=== PATIENT | female | born 1955 | race Caucasian/White ===

== ENCOUNTER 2021-02-15 15:16 | Emergency (ER) | payer BC, SELFPAY ==
[2021-02-15 15:29] VITALS: BP 132/69; PULSE 102; RESP 16; TEMP 37.2; O2SAT 99
[2021-02-15 15:57] LABS: Basophils Percent Auto 0.1 % (0.2-1.2); Eosinophils Percent Auto 0.1 % (0-4.4); Hematocrit 35.9 % (37.0-47.0); Hemoglobin 11.6 g/dL (12.0-15.0); Immature Granulocyte Absolute 0.31 K/mm3 (0.00-0.031); Immature Granulocyte Percent A 1.4 % (0-0.5); Immature Platelet Fraction Pct 18.6 % (0.9-11.2); Lymphocytes Absolute Auto 1.27 K/mm3 (0.9-3.2); Lymphocytes Percent Auto 5.5 % (18.3-44.2); Mean Corpuscular HGB Conc 32.3 g/dl (32-36); Mean Corpuscular Hemoglobin 27.7 pg (26-34); Mean Corpuscular Volume 85.7 fl (80-100); Monocytes Absolute Auto 1.2 K/mm3 (0.1-0.6); Monocytes Percent Auto 5.4 % (2.6-8.5); Neutrophils Percent Auto 87.5 % (45.5-73.1); Platelet Count Result 33 k/mm3 (150-375); Red Blood Count 4.19 M/mm3 (4.2-5.4); Red Cell Distribution Width 14.1 % (11.5-14.5); White Blood Count 22.9 K/mm3 (4.5-10.0)
--- NOTE | 2021-02-15 17:47 | ED.GENADULT ---
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 Recent diagnosis and tumor excision on May 2020. Immunotherapy, complicated with ITP, history of epistaxis and gum bleeding 1 week ago, was hospitalized at [facility] and received 2 units of platelet. Patient was a scheduled to meet the oncology radiology today for radiotherapy, did not feel well and came to our emergency room instead. Patient denies any fever, chills, nausea, vomiting, headache, abdominal pain, back pain. Her main complaint at this time is fatigue and depression Related Data Allergies Allergy/AdvReac Type Severity Reaction Status Date / Time cat dander Allergy Unknown Verified 02/15/21 16:56 Review of Systems Review of Systems: Narrative: CONSTITUTIONAL: Denies fever, chills, or sweats. EYES: Denies visual changes, redness, or discharge. ENT: Denies rhinorrhea, congestion, sore throat, or otalgia. CARDIOVASCULAR: Denies chest pain, palpitations, or edema. RESPIRATORY: Denies cough or dyspnea. GASTROINTESTINAL: Denies abdominal pain, nausea, vomiting, or diarrhea. GENITOURINARY: Denies dysuria or hematuria. SKIN: Denies rash or itching. MUSCULOSKELETAL: Denies back pain, joint pain, or myalgia. NEUROLOGIC: Denies headache, numbness, or weakness. PSYCHIATRIC: Denies anxiety or depression. Exam Narrative: Exam Narrative: General appearance: Well-developed, well-nourished, looks depressed Skin: Normal color Head: Normocephalic, nontraumatic Eyes: Clear conjunctiva ENT: Oropharynx normal, ears normal, nose normal Neck: Supple, nontender Chest and respiratory: Airway patent, no respiratory distress, no accessory muscle use Heart: Regular rate/rhythm Abdomen: Soft, mild to moderate tenderness right lower quadrant ,, no organomegaly, quiet bowel sounds. Rectal exam showed a fungating mass, perianal, no active bleeding, diffusely tender Vascular: Normal peripheral pulses, normal capillary refill. Musculoskeletal: Normal range of motion, nontender back Neurologic: Alert and oriented ?3, DIABETES CLINICAL MANAGER is normal as tested, no gross motor deficit Course Course Emergency Course: Stable Reevaluation(s) Reevaluation #1: Currently patient feeling much better, does not feel weak and tired as earlier today and would like to go home. Currently denying any active bleeding or any significant pain interfere with her going back home. She is planning to call her oncologist tomorrow, and to go visit her oncologist radiologist for evaluation. Date: 02/15/21 Time: 22:36 Reevaluation #2: After getting COVID-19 test, [facility] telling us that there is no bed available at this time, will be available in the next 24 hours. Patient decided to go home because she is feeling much better and does not need to stay with us or even go to [facility]. She will call her oncologist tomorrow. Date: 02/15/21 Time: 22:39 Consultations Consultation #1: Dr. Quintana, oncologist at [facility], accepted patient transfer to [facility] after getting rapid Covid test. Date: 02/15/21 Time: 22:35 Vital Signs Vital signs: Vital Signs Temperature 37.2 C 02/15/21 15:29 Pulse Rate 102 H 02/15/21 15:29 Respiratory Rate 16 02/15/21 15:29 Blood Pressure 132/69 02/15/21 15:29 Pulse Oximetry 99 02/15/21 15:29 Temperature 37.2 C 02/15/21 15
[2021-02-15] MEDS: ONDANSETRON INJ 4 MG/2 ML VIAL IV PUSH (18:02)
[2021-02-15] MEDS: HYDROmorphone HCL INJ (*CRX) 1 MG/ML SYR 0.5 MG IV PUSH (18:02)
[2021-02-15] MEDS: SODIUM CHLORIDE 0.9% IV 1,000 ML 999 ML IV CONT (18:02)
[2021-02-15 18:56] VITALS: BP 131/65; PULSE 99; RESP 17; O2SAT 99
[2021-02-15 19:28] LABS: Alanine Aminotransferase 16 U/L (4-35); Alkaline Phosphatase 83 U/L (38-126); Anion Gap 6 mmol/L (8-16); Aspartate Amino Transferase 42 U/L (14-36); Bilirubin,Total 0.7 mg/dL (0.2-1.3); Blood Urea Nitrogen 17 mg/dL (7-17); Calcium 7.8 mg/dL (8.4-10.2); Carbon Dioxide 27 mmol/L (22-30); Chloride 99 mmol/L (98-107); Estimated CRCL calculation 92 ml/min; Estimated Glomerular Filt Rate > 60; Glucose 104 mg/dL (65-105); Potassium 3.5 mmol/L (3.4-5.0); Sodium 132 mmol/L (137-145)
[2021-02-15 19:36] LABS: INR 1.1; Prothrombin Time 14.4 Seconds (11.1-14.7)
[2021-02-15 19:38] VITALS: BP 124/60; PULSE 71; O2SAT 98
[2021-02-15 19:38] LABS: Partial Thromboplastin Time 26.8 SECONDS (22.3-36.8)
[2021-02-15 20:13] LABS: Add Urine Microscopic? YES; Appearance Urine Clear (Clear); Bacteria Urine Trace /hpf; Bilirubin Urine Negative (Negative); Blood Urine 1+ (Negative); Color Urine Yellow (Yellow); Glucose Urine UA Negative (Negative); Ketones Urine Negative (Negative); Leukocyte Esterase Ur Negative LEU/UL (Negative); Mucus Urine Rare /lpf; Nitrate Urine Negative (Negative); Protein Urine Negative (Negative); RBC Urine 0-2 /hpf (0-2); Squamous Epithelial Cell Urine Rare /hpf (Few); Urobilinogen Urine Negative mg/dL (<2.0); WBC Urine 0-3 /hpf
--- NOTE | 2021-02-15 21:01 | PC.NURSE ---
called [facility] transfer line advised covid poc was negative.
[2021-02-15 22:20] VITALS: BP 136/65; PULSE 77; O2SAT 98
== END 2021-02-15 23:02 | disposition home or self-care (01) ==
PROVIDERS: Emergency Medicine; Emergency Provider Emergency Medicine
DX: R53.1 Weakness (principal); F32.9 Major depressive disorder, single episode, unspecified; Z20.822 Contact with and (suspected) exposure to COVID-19; Z85.828 Personal history of other malignant neoplasm of skin
CPT/HCPCS: 36415; 80053; 81001; 85025; 85055; 85610; 85730; 86850; 86900; 86901; 87426; 96361; 96374; 96375; 99284; C9803; J1170; J2405; J7030

== ENCOUNTER 2021-05-07 17:04 | Emergency (ER) | payer MEDICARE, BC, SELFPAY ==
[2021-05-07 17:10] VITALS: BP 141/81; PULSE 104; RESP 16; TEMP 36.6; O2SAT 98
[2021-05-07 17:28] LABS: Hematocrit 28.5 % (37.0-47.0); Hemoglobin 9.1 g/dL (12.0-15.0); Mean Corpuscular HGB Conc 31.9 g/dl (32-36); Mean Corpuscular Volume 87.7 fl (80-100); Mean Platelet Volume 10.1 fl (7.4-10.4); Platelet Count Result 269 k/mm3 (150-375); Red Blood Count 3.25 M/mm3 (4.2-5.4); Red Cell Distribution Width 16.8 % (11.5-14.5); White Blood Count 9.1 K/mm3 (4.5-10.0)
[2021-05-07 17:38] LABS: Alanine Aminotransferase 13 U/L (4-35); Albumin Level 3.9 g/dL (3.5-5.1); Alkaline Phosphatase 113 U/L (38-126); Anion Gap 9 mmol/L (8-16); Aspartate Amino Transferase 24 U/L (14-36); Bilirubin,Total 0.6 mg/dL (0.2-1.3); Blood Urea Nitrogen 8 mg/dL (7-17); Calcium 9.3 mg/dL (8.4-10.2); Carbon Dioxide 30 mmol/L (22-30); Chloride 96 mmol/L (98-107); Estimated CRCL calculation 88 ml/min; Estimated Glomerular Filt Rate > 60; Glucose 124 mg/dL (65-110); Lipase 13 U/L (23-300); Potassium 3.2 mmol/L (3.4-5.0); Sodium 135 mmol/L (137-145)
[2021-05-07 17:49] LABS: Band Neutrophils Percent 13 % (0-6); Lymphocytes Absolute Manual 0.18 K/mm3 (1.1-4.5); Monocytes Absolute Manual 0.36 K/mm3 (0.1-0.90); Monocytes Percent Manual 4 % (3-9); Neutrophils Absolute Manual 8.55 K/mm3 (1.7-7.2); Neutrophils Percent Manual 81 % (46-73); Platelet Estimate Adequate (Adequate); Total Cells Counted 100
[2021-05-07 17:50] LABS: Anisocytosis 2+ (NORMAL); Hypochromasia 1+ (NORMAL)
[2021-05-07 20:23] LABS: Add Urine Microscopic? NO; Appearance Urine Clear (Clear); Bilirubin Urine Negative (Negative); Blood Urine Negative (Negative); Color Urine Yellow (Yellow); Glucose Urine UA Negative (Negative); Ketones Urine Negative (Negative); Leukocyte Esterase Ur Negative LEU/UL (Negative); Nitrate Urine Negative (Negative); Protein Urine Negative (Negative); Urobilinogen Urine Negative mg/dL (<2.0)
[2021-05-07 20:24] VITALS: BP 133/81; PULSE 97; RESP 18; O2SAT 99
--- NOTE | 2021-05-07 20:24 | PC.NURSE ---
Pt reports pain and states she takes PO morphine at 0900 and 2100 daily. Requests pain medication prior to fleets enema/soap suds enema. EDP Dr Silveira made aware, order placed to pharm.
[2021-05-07] MEDS: MORPHINE SULFATE ORAL CONC SOL (*CRX) 10 MG/0.5 ML SYRINGE PO (20:43)
--- NOTE | 2021-05-07 20:48 | ED.ABDPAIN ---
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 for pain Here because of rectal discomfort and not passing a stool that she can recall for several days She is supposed to take MiraLAX but does not always No fever, no vomiting, no urinary symptoms Related Data Home Medications Medication Instructions Recorded Confirmed eltrombopag [Promacta] 05/07/21 fluconazole 05/07/21 levothyroxine 05/07/21 morphine PO 05/07/21 oxycodone 05/07/21 Allergies Allergy/AdvReac Type Severity Reaction Status Date / Time cat dander Allergy Unknown Verified 05/07/21 17:41 Review of Systems Review of Systems: All systems reviewed & are unremarkable except as noted in HPI and below Constitutional: Constitutional: Reports no additional constitutional complaints, Denies chills, Reports fatigue, Denies fever(s), Denies headache(s) and Reports weakness ENT: Denies headache(s) Cardiovascular: Cardiovascular: Denies dyspnea Respiratory: Respiratory: Denies cough and Denies dyspnea Gastrointestinal: Gastrointestinal: Reports abdominal pain, Reports constipation, Denies diarrhea, Reports nausea and Denies vomiting Genitourinary: Genitourinary: Denies urinary frequency Musculoskeletal: Musculoskeletal: Reports myalgias, Denies deformity and Denies numbness Integumentary/Breasts: Skin/Breast: Denies wounds Neurologic: Denies headache(s), Denies focal weakness and Denies numbness Psychiatric: Psychiatric: Reports no additional psychiatric complaints Endocrine: Endocrine: Reports no additional endocrine complaints Hematologic/Lymphatic: Hematologic/Lymphatic: Reports no additional hematologic/lymphatic complaints Allergic/Immunologic: Allergic/Immunologic: Reports no additional allergic/immunologic complaints Exam Const: General: cooperative, alert and ill appearing Orientation/consciousness: patient oriented x3 (alert) HENMT: Head: normal to inspection, normocephalic and atraumatic Ears: external ears normal General nose exam: no epistaxis Eyes: Conjunctivae: conjunctivae normal EOM: EOMs intact bilaterally Neck: Neck: normal visual inspection, supple and no JVD Resp: Effort & Inspection: normal respiratory effort and not labored Auscultation: other (BS =) GI: GI Palp: Yes Soft to palpation, No Tenderness to palpation present (GI) and No Guarding due to palpation present (GI) Other: There is a large ulcerating mass in the right groin There is a similar ulcerating and a draining lesion in the right perianal region over the buttock There is a moderate sized firm impaction on digital rectal exam that was broken up somewhat digitally to the limit of the patient's tolerance Skin: General skin exam: no rashes or lesions noted Neuro: General: patient oriented x3 (alert) and moves all extremities Speech: normal speech Psych: Affect: normal affect Course Course Emergency Course: Did pass some stool after digital maceration and enema administration Vital Signs Vital signs: Vital Signs Temperature 36.6 C 05/07/21 17:10 Pulse Rate 104 H 05/07/21 17:10 Respiratory Rate 16 05/07/21 17:10 Blood Pressure 141/81 H 05/07/21 17:10 Pulse Oximetry 98 05/07/21 17:10 Temperature 36.6 C 05/07/21 17:10 Pulse Rate 97 05/07/21 20:24 Respiratory Rate 18 05/07/21 20:24 Blood Pressure 133/81 05/07/21 20:24 Pulse Oximetry 99 05/07/21 20:24 MDM - Abdominal Pain Lab Data Result diagrams: 05/07/21 17:16 05/07/21 17:16 Labs: Lab Results 05/07/21 05/07/21 05/07/21 Range/Units 17:16 17:16 20:16 WBC 9.1 (4.5-10.0) K/mm3 RBC 3.25 L (4.2-5.4)
[2021-05-07 22:09] VITALS: BP 138/87; PULSE 99; RESP 21; O2SAT 97
== END 2021-05-07 22:34 | disposition home or self-care (01) ==
PROVIDERS: Emergency Provider Emergency Medicine
DX: K56.41 Fecal impaction (principal); C43.51 Malignant melanoma of anal skin
CPT/HCPCS: 36415; 51701; 80053; 81003; 83690; 85025; 99283; A9270

== ENCOUNTER 2021-05-23 23:23 | Emergency (ER) | payer MEDICARE, SELFPAY ==
--- NOTE | ~2021-05-23 | CT_ITS ---
EXAMINATION: CT abdomen pelvis w con DATE: 05/24/2021 03:15 INDICATION: Low abdominal pain. Diarrhea. Nausea. TECHNIQUE: Computed tomography (CT) of the abdomen and pelvis was performed with 100 mL Omnipaque 350 intravenous contrast. Automated exposure control and iterative reconstruction technique were employe d. The dose-length product was 948.79 mGy-cm. COMPARISON: None. FINDINGS: The visualized portions of the lung bases are clear without pneumonia or pleural effusion. The heart size is normal. No pericardial effusion. There are 10 mm and 7 mm masses in left hepatic lo be. The spleen is normal. There are gallstones in the gallbladder, which is normal in size. The pancr eas and left adrenal gland are normal. There is a 2.0 cm mass in right adrenal gland measuring soft t issue attenuation. There are cysts in the kidneys measuring up to 1.4 cm on the right. There is diver ticulosis of the colon without evidence of diverticulitis. There is mild wall thickening of the recto sigmoid. There is liquid stool in the colon correlating with the symptom of diarrhea. The appendix is normal. In the right perineum, there is an 8.4 x 4.0 x 6.7 cm necrotic perianal mass that is ulcerat ed at the skin. In the right inguinal region, there is a 8.4 x 5.5 x 13.7 cm mass. There is severe elyse mbar spondylosis. There is mild chronic anterior wedging of multiple vertebral bodies. IMPRESSION: 1. 8.4 x 4.0 x 6.7 cm perianal mass, consistent with primary malignancy. 2. 8.4 x 5.5 x 13.7 cm right inguinal mass, consistent with michael metastatic disease. 3. 10 mm and 7 mm liver masses, which may be metastatic disease or cysts. 4. 2.0 cm right adrenal mass, which may be metastatic disease or an adenoma. 5. Mild wall thickening of the rectosigmoid, consistent with colitis. Reviewed, dictated and finalized at location A. IMPRESSION: 1. 8.4 x 4.0 x 6.7 cm perianal mass, consistent with primary malignancy. 2. 8.4 x 5.5 x 13.7 cm right inguinal mass, consistent with michael metastatic di sease. 3. 10 mm and 7 mm liver masses, which may be metastatic disease or cysts. 4. 2.0 cm right adrenal mass, which may be metastatic disease or an adenoma. 5. Mild wall thickening of the rectosigmoid, consistent with colitis.
[2021-05-23 23:27] VITALS: BP 166/74; PULSE 68; RESP 18; TEMP 36.5; O2SAT 100
[2021-05-24] VITALS (11 sets, daily range): BP systolic 130–181; BP diastolic 69–84; PULSE 60–77; RESP 12–16; O2SAT 99–100
[2021-05-24 00:14] LABS: Hematocrit 28.6 % (37.0-47.0); Hemoglobin 9.3 g/dL (12.0-15.0); Immature Granulocyte Absolute 0.02 K/mm3 (0.00-0.031); Immature Granulocyte Percent A 0.7 % (0-0.5); Lymphocytes Absolute Auto 0.13 K/mm3 (0.9-3.2); Lymphocytes Percent Auto 4.8 % (18.3-44.2); Mean Corpuscular HGB Conc 32.5 g/dl (32-36); Mean Corpuscular Hemoglobin 28.4 pg (26-34); Mean Corpuscular Volume 87.5 fl (80-100); Mean Platelet Volume 10.2 fl (7.4-10.4); Monocytes Percent Auto 0.4 % (2.6-8.5); Neutrophils Absolute Auto 2.6 K/mm3 (1.3-6.7); Neutrophils Percent Auto 94.1 % (45.5-73.1); Platelet Count Result 271 k/mm3 (150-375); Red Blood Count 3.27 M/mm3 (4.2-5.4); White Blood Count 2.7 K/mm3 (4.5-10.0)
[2021-05-24 00:33] LABS: Alanine Aminotransferase 27 U/L (4-35); Albumin Level 3.8 g/dL (3.5-5.1); Alkaline Phosphatase 84 U/L (38-126); Anion Gap 11 mmol/L (8-16); Aspartate Amino Transferase 44 U/L (14-36); Bilirubin,Total 0.5 mg/dL (0.2-1.3); Blood Urea Nitrogen 22 mg/dL (7-17); Calcium 9.1 mg/dL (8.4-10.2); Carbon Dioxide 22 mmol/L (22-30); Chloride 104 mmol/L (98-107); Estimated CRCL calculation 101 ml/min; Estimated Glomerular Filt Rate > 60; Glucose 179 mg/dL (65-110); Lipase 23 U/L (23-300); Potassium 3.9 mmol/L (3.4-5.0); Sodium 137 mmol/L (137-145)
[2021-05-24] MEDS: LACTATED RINGERS 1,000 ML 999 ML IV CONT ×2 (03:00)
[2021-05-24] MEDS: ONDANSETRON INJ 4 MG/2 ML VIAL IV PUSH (03:00)
--- NOTE | 2021-05-24 05:07 | ED.NAVMDI ---
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 Patient states she was started on chemotherapy on Monday during her last admission at [facility]. She was discharged from [facility] on and she developed diarrhea on Monday. She spoke to her doctors on Monday , and they recommend that she take Imodium for her diarrhea. She states her diarrhea improved on Monday but it returned Monday. She has had multiple episodes of watery nonbloody diarrhea in the past 24 hours. Sometimes she only passes a small amount of stool and sometimes her diarrhea is significant. She denies fever, chills, vomiting, or abdominal pain. She has intermittent dizziness. Patient does not she was taking miralax daily until Monday. She was also started on antibiotics for UTI during her hospitalization. Related Data Home Medications Medication Instructions Recorded Confirmed eltrombopag [Promacta] 05/07/21 fluconazole 05/07/21 levothyroxine 05/07/21 morphine PO 05/07/21 oxycodone 05/07/21 Allergies Allergy/AdvReac Type Severity Reaction Status Date / Time cat dander Allergy Unknown Verified 05/07/21 17:41 Review of Systems Review of Systems: All systems reviewed & are unremarkable except as noted in HPI and below PMFSH Past Medical History Medical History (Updated 05/24/21 @ 06:15 by Lilian Ron MD) Melanoma Social History Social History (Updated 05/24/21 @ 05:13 by Lilian Ron MD) Smoking status: Never smoker Exam Const: General: alert Orientation/consciousness: patient oriented x3 Eyes: Pupils: Equal, round and reactive pupils present EOM: EOMs intact bilaterally Resp: Effort & Inspection: normal respiratory effort and no retractions Auscultation: clear to auscultation bilaterally Cardio: Rate: regular rate Rhythm: regular rhythm Heart sounds: no murmurs GI: GI Palp: Yes Soft to palpation, Yes Tenderness to palpation present (GI) (LLQ), No Guarding due to palpation present (GI) and No Rigid due to palpation Auscultation: normal bowel sounds Other: right groin with necrotic mass Neuro: General: patient oriented x3, moves all extremities and CN's II-XI intact bilaterally Psych: Mental Status: mental status grossly normal Affect: normal affect Course Reevaluation(s) Reevaluation #1: Patient states she is ready for discharge home. I discussed discharge plan. Will test for c diff and start lomotil Date: 05/24/21 Time: 06:08 Consultations Consultation #1: I spoke with Dr. Hernandez of oncology at [facility]. He is okay with patient being discharge. I discussed labs and treatment in ER. This is likely combination of cancer and chemo. He agrees with c diff testing and he is okay with giving lomotil. Date: 05/24/21 Time: 06:09 Vital Signs Vital signs: Vital Signs Temperature 97.7 F 05/23/21 23:27 Pulse Rate 68 05/23/21 23:27 Respiratory Rate 18 05/23/21 23:27 Blood Pressure 166/74 H 05/23/21 23:27 Pulse Oximetry 100 05/23/21 23:27 Temperature 97.7 F 05/23/21 23:27 Pulse Rate 77 05/24/21 06:41 Respiratory Rate 16 05/24/21 06:41 Blood Pressure 130/78 05/24/21 06:41 Pulse Oximetry 99 05/24/21 06:41 MDM - Nausea/Vomiting/Diarrhea Medical Records Attestation: I reviewed the patient's medical records. Lab Data Attestation: I reviewed the patient's lab results. Result diagrams: 05/23/21 23:55 05/23/21 23:55 Labs: Lab Results 05/23/21 05/23/21 05/24/21 Range/Units 23:55 23:55 05:01 WBC 2.7 L (4.5-10.0) K/mm3 RBC 3.27 L (4.2-5.4) M/mm3 Hgb
[2021-05-24 05:21] LABS: Add Urine Microscopic? NO; Appearance Urine Clear (Clear); Bilirubin Urine Negative (Negative); Blood Urine Negative (Negative); Color Urine Colorless (Yellow); Glucose Urine UA Negative (Negative); Ketones Urine Negative (Negative); Leukocyte Esterase Ur Negative LEU/UL (Negative); Nitrate Urine Negative (Negative); Protein Urine Negative (Negative); Specific Grav Ur 1.019 (1.001-1.035); Urobilinogen Urine Negative mg/dL (<2.0)
--- NOTE | 2021-05-24 06:55 | PC.NURSE ---
attempted to help pt to waiting room x2. Pt conts to go to the bathroom in her room (using her commode)
== END 2021-05-24 07:03 | disposition home or self-care (01) ==
PROVIDERS: Emergency Medicine; Emergency Provider General Practice
DX: R19.7 Diarrhea, unspecified (principal); E86.0 Dehydration; C79.2 Secondary malignant neoplasm of skin
CPT/HCPCS: 36415; 74177; 80053; 81003; 83690; 85025; 87324; 96361; 96374; 99284; J2405; J7120; Q9967

== ENCOUNTER 2022-03-16 18:30 | Inpatient (IN) | payer OTHER, MEDICARE, SELFPAY ==
[2022-03-16 18:30] VITALS: BP 120/66; PULSE 116; RESP 10; TEMP 35; O2SAT 100
--- NOTE | 2022-03-16 19:06 | PM.IMHP ---
H&P: HPI History of Present Illness Date/Time: 03/16/22 19:06 Chief Complaint: Hospice admission Narrative: This is a 66-year-old female patient who has metastatic perianal melanoma and had radiation and chemotherapy. The patient is now on hospice with [facility]. The patient is taking 7 mg of Dilaudid orally every 1 hour at home around the clock. She is also taking 150 mg of fentanyl patches every 3 days. She is also getting 2 mg of Ativan every 2 hours. She is also getting Haldol. Her pain is not controlled. Patient is being admitted for pain management under hospice. The patient is being admitted to inpatient services for hospice on the date of service of 03/16/2022. Review of Systems Review of Systems: See HPI All systems reviewed & are unremarkable except as noted in HPI and below Constitutional: Constitutional: Reports as per HPI and Reports no additional constitutional complaints Eyes: Eyes: Reports as per HPI and Reports no additional eye complaints ENT: Reports system reviewed and no additional complaints, except as documented and Reports Normal hearing present Cardiovascular: Cardiovascular: Reports no additional cardiovascular complaints Respiratory: Respiratory: Reports no additional respiratory complaints and Reports no additional respiratory complaints Gastrointestinal: Gastrointestinal: Reports as per HPI and Reports no additional gastrointestinal complaints Musculoskeletal: Musculoskeletal: Reports no additional musculoskeletal complaints Integumentary/Breasts: Skin/Breast: Reports system reviewed and no additional complaints, except as docu and Reports as per HPI Neurologic: Reports system reviewed and no additional complaints, except as documented, Reports as per HPI and Reports Normal hearing present Psychiatric: Psychiatric: Reports no additional psychiatric complaints and Reports as per HPI Endocrine: Endocrine: Reports no additional endocrine complaints Hematologic/Lymphatic: Hematologic/Lymphatic: Reports no additional hematologic/lymphatic complaints Allergic/Immunologic: Allergic/Immunologic: Reports no additional allergic/immunologic complaints [facility] Past Medical History Medical History (Updated 03/16/22 @ 19:21 by Sera Cesar NP) Hypothyroidism Melanoma Of the anus with chemotherapy and radiation Port-A-Cath in place Surgical History Surgical History (Updated 03/16/22 @ 19:21 by Sera Cesar NP) History of section, classical History of rectal surgery Family History Family History Mother Breast cancer Father Melanoma Social History Social History (Updated 03/16/22 @ 19:23 by Sera Cesar NP) Social History: The patient is currently on hospice. She is . She had 2 children. She never smoked. No alcohol. Code status DNR Smoking status: Never smoker Spiritual care concerns: No Meds Home Medications and Allergies Home Medications Medication Instructions Recorded Confirmed Type fentanyl 25 mcg/hr transdermal 5 patch transdermal Q72H 03/16/22 03/16/22 History patch haloperidol 2 mg tablet 2 mg PO Q4H 03/16/22 03/16/22 History hydromorphone 1 mg/mL oral liquid 7 mg PO Q1H 03/16/22 03/16/22 History (Dilaudid) lorazepam 2 mg tablet 2 mg PO Q2H 03/16/22 03/16/22 History phenobarbital 30 mg tablet See Rx Instructions .Route .COMPLEX 03/16/22 03/16/22 History Allergies Allergy/AdvReac Type Severity Reaction Status Date / Time cat dander Allergy Unknown Verified 05/07/21 17:41 Vital Signs Vital Signs - 24 hr 03/16/22 18:30 Temperature 35 C L Pulse Rate 116 H Respiratory Rate 10 L Blood Pressure 120/66 Pulse Oximetry 100 Exam Const: General: awake, ill appearing and uncomfortable Nutritional Appearance: average body habitus and well nourished Orientation/consciousness: oriented to person and oriented to place HENMT:
[2022-03-16] MEDS: HYDROmorphone HCL/PF (*CRX) 50 MG in SODIUM CHLORIDE 0.9% IV 95 ML IV CONT (19:47)
[2022-03-16] MEDS: HALOPERIDOL LACTATE 5 MG/ML VIAL 2 MG IV PUSH (20:10)
[2022-03-16] MEDS: LORazepam INJ (*CRX) 2 MG/ML VIAL IV PUSH ×2 (21:34→23:51)
[2022-03-17] MEDS: MORPHINE SULFATE ORAL CONC SOL (*CRX) 10 MG/0.5 ML SYRINGE 5 MG PO ×2 (00:08→04:21)
[2022-03-17] MEDS: LORazepam INJ (*CRX) 2 MG/ML VIAL IV PUSH ×3 (02:14→07:48)
[2022-03-17] MEDS: HALOPERIDOL LACTATE 5 MG/ML VIAL 2 MG IV PUSH ×2 (05:07→10:05)
[2022-03-17] MEDS: HYDROmorphone HCL/PF (*CRX) 50 MG in SODIUM CHLORIDE 0.9% IV 95 ML 20 MG IV CONT (07:46)
--- NOTE | 2022-03-17 08:02 | PC.NURSE ---
Patient moaning and yelling out in pain, stating my tamiko hurts, please help me . Administered PRN ativan without much improvement. Contacted hospitalist, Monse to inquire about increasing Dilaudid drip rate. Monse stated she would take a look and put some orders in .
--- NOTE | 2022-03-17 08:09 | PM.IMPN ---
Progress Note: A&P Assessment and Plan (1) Admission for hospice care: Code(s): Z51.5 - Encounter for palliative care Status: Acute Assessment and Plan: Patient was on dilaudid drip 10 mg/hour which was increased to 11 mg/hour with no improvement noted. Patient was also receiving scheduled Haldol and Valium as below, as well as Roxanol 10 mg SL Q1 hours PRN for breakthrough pain. Fentanyl 100 mcg IV x1 given with good relief. Patient changed to fentanyl drip 50 mcg/hour initially and titrated up to 100 mcg/hour at 1530. Continue to increase dose for patient comfort for this hospice patient. Patient is opioid tolerant. Haldol 5 mg IV Q4 hours scheduled for agitation Valium 10 mg IV Q2 hours scheduled for agitation (changed from Ativan due to nationwide shortage). Fentanyl transdermal patch changed to 150 mcg Q72 hours and changed today 03/17/22. Continue atropine drops. Reclamation Worker consulted and local crowning inspector contacted per family request. Continue supportive care. NPO Time Spent With Patient Time with patient: Greater than 35 minutes Subjective Date/time seen: 03/17/22 08:09 Interval history: Patient is a 66 yo female with metastatic perianal melanoma currently receiving hospice care with [facility]. She presented to the hospital for management of pain and comfort care not responsive to oral narcotics. Patient was found lying in bed with her daughter and hospice nurse at bedside. They report the patient has not been having adequate pain control with current continuous IV and PRN medications. The patient has episodes of thrashing and pulling off blankets and clothes. The patient reportedly has been taking 100 mcg fentanyl patch Q72 hours, diluadid 7 mg PO Q1 hour, Lorazepam 2 mg PO Q2 hours, and haldol 2 mg PO Q4 hours. Phenobarbital was recently added at home, however, the patient had difficulty swallowing this medication. Review of Systems Review of Systems: All systems reviewed & are unremarkable except as noted in HPI and below Exam Narrative: General: chronically ill-appearing, frail adult female lying in bed. Moderate distress. Neuro/Psych: Eyes closed. Nonverbal. Intermittent moaning. Does not follow commands. HEENT:? normocephalic, atraumatic, mucous membranes dry. Respiratory:?RR regular and unlabored. No stridor, wheezing or audible rattle. Cardio: regular rate, regular rhythm. <3 cap refill. Abdomen:? nondistended, soft, nontender to palpation Extremities: No edema of bilateral lower extremities, no erythema, nontender to palpation, Skin: pale, warm and dry. No visible wounds. Objective Data Vital Signs Vital Signs: Vital Signs - 24 hr 03/16/22 18:30 03/16/22 21:21 Temperature 95 F L Pulse Rate 116 H Respiratory Rate 10 L Blood Pressure 120/66 Pulse Oximetry 100 Oxygen Delivery Room Air Intake/Output Intake/Output: Intake & Output 03/14/22 03/15/22 03/16/22 03/17/22 23:59 23:59 23:59 23:59 Intake Total 100 Balance 100 Meds/Results Medications: Active Medications Generic Name Dose Route Start Last Admin Trade Name Freq PRN Reason Stop Dose Admin Artificial Tears 1 drop 03/16/22 18:30 Artificial Tears Ophth Soln 15 Ml Bottle EACH EYE Q4H PRN Dry Eye(s) Atropine Sulfate 1 drop 03/16/22 18:30 Atropine Sulfate 1% Ophth Soln 5 Ml Bottle SUBLINGUAL Q4H PRN Secretions Fentanyl 50 mcg 03/17/22 09:00 Fentanyl (*Crx) 50 Mcg Patch TRANSDERM Q72HR ESTHER Fentanyl 100 mcg 03/17/22 09:00 Fentanyl (*Crx) 100 Mcg Patch TRANSDERM Q72HR ESTHER Haloperidol Lactate 2 mg 03/16/22 18:37 03/17/22 05:07 Haloperidol Lactate 5 Mg/Ml Vial IV PUSH 2 mg Q4H PRN Administration Abdominal Cramping Heparin Sodium (Beef Lung) 50 units 03/17/22 09:00 Heparin Flush 50 Units/5 Ml Syringe IV PUSH QAM ESTHER Heparin Sodium (Beef Lung) 50 units 03/17/22 06:53 Heparin Flush
[2022-03-17] MEDS: HYDROmorphone HCL/PF (*CRX) 50 MG in SODIUM CHLORIDE 0.9% IV 95 ML 22 MG IV CONT (08:37)
[2022-03-17] MEDS: fentaNYL (*CRX) 50 MCG PATCH TRANSDERM (08:45)
[2022-03-17] MEDS: diazePAM INJ (*CRX) 10 MG/2 ML SYRINGE IV PUSH ×6 (10:05→21:40)
[2022-03-17] MEDS: MORPHINE SULFATE ORAL CONC SOL (*CRX) 10 MG/0.5 ML SYRINGE PO (10:06)
[2022-03-17] MEDS: fentaNYL CITRATE INJ (*CRX) 100 MCG/2 ML VIAL IV PUSH ×5 (11:05→22:52)
[2022-03-17] MEDS: HALOPERIDOL LACTATE 5 MG/ML VIAL IV PUSH ×4 (11:05→20:58)
[2022-03-17] MEDS: FENTANYL 2,500MCG/NS250ML(*CRX 2,500 MCG/250 ML BAG IV CONT (13:11)
[2022-03-17] MEDS: CENTRAL LINE FLUSH 10 ML IV PUSH ×2 (13:53→21:40)
--- NOTE | 2022-03-17 14:19 | PC.NURSE ---
Patient's daughter requested RN's presence. Upon entering room, RN found patient to be restless, writhing in pain and yelling out help me, help me . Daughter stated she didn't know how long until the medicine should start to work . RN administered a PRN dose of Fentanyl approximately 15 minutes prior and patient did not appear to gain any relief. RN told patient's daughter she would contact the provider to see if we could increase the rate of the Fentanyl drip and daughter requested RN run that by hospice first . RN called [facility] and left message with La regarding previous request. Per Sara Tovar (the hospice nurse currently assigned to patient) will call back.
--- NOTE | 2022-03-17 14:22 | PHAR ---
Fentanyl drip ordered for this patient while hospitalized in room 318. Patient on hospice, requiring high doses of hydromorphone IV. Fentanyl IVP provided much more relief than hydromorphone drip. Provider, Nurse Rubber Stamp Die Inspector, and nurse caring for patient agree that this patient would benefit from Fentanyl drip therapy, despite restriction to critical care areas only per policy. Pharmacy agrees with those involved
--- NOTE | 2022-03-17 16:24 | PC.NURSE ---
This nurse verified with the floor RN that the patient is getting Fentanyl 100 mcg/hr IV continuous drip and not 1000 mcg/hr. IV Pump reflects 100 mcg/hr as ordered. The MAR corrected to reflect order.
[2022-03-18] MEDS: diazePAM INJ (*CRX) 10 MG/2 ML SYRINGE IV PUSH ×5 (00:05→09:01)
[2022-03-18] MEDS: HALOPERIDOL LACTATE 5 MG/ML VIAL IV PUSH ×6 (00:48→20:35)
[2022-03-18] MEDS: fentaNYL CITRATE INJ (*CRX) 100 MCG/2 ML VIAL IV PUSH ×5 (01:29→10:59)
[2022-03-18] MEDS: CENTRAL LINE FLUSH 10 ML IV PUSH ×3 (05:59→21:58)
--- NOTE | 2022-03-18 10:30 | PC.NURSE ---
[facility]' nurse informed me that pt was still restless, agitated, and grimacing as if in extreme pain despite the increase in dosages this morning. We discussed what she has administered over the last several weeks as well as they various different medications that have been tried to make pt. comfortable. We further discussed possible solutions and contacted the hospitalist assigned to pt for suggestions and new orders. Brenda Vuong gave new orders, which I entered as directed, and instructed me to contact her after administered to determine if the new regime was effective.
[2022-03-18] MEDS: diazePAM INJ (*CRX) 10 MG/2 ML SYRINGE 20 MG IV PUSH ×7 (10:59→21:58)
[2022-03-18] MEDS: diphenhydrAMINE HCl INJ 50 MG/ML VIAL IV PUSH ×4 (10:59→22:00)
[2022-03-18 12:36] VITALS: RESP 14
[2022-03-18 12:38] VITALS: RESP 14
[2022-03-18] MEDS: FENTANYL 2,500MCG/NS250ML(*CRX 2,500 MCG/250 ML BAG 15 MCG IV CONT (12:38)
--- NOTE | 2022-03-18 15:26 | PM.IMPN ---
Progress Note: A&P Assessment and Plan (1) Admission for hospice care: Code(s): Z51.5 - Encounter for palliative care Status: Acute Assessment and Plan: Patient was placed on dilaudid drip 10 mg/hour upon admission. No relief despite continued increases. Patient was also receiving scheduled Haldol and Valium as below, as well as Roxanol 10 mg SL Q1 hours PRN for breakthrough pain. Fentanyl drip 150 mcg/hour. Continue to increase dose for patient comfort for this hospice patient. Patient is opioid tolerant. Fentanyl 100 mcg IV PRN Q1 hour breakthrough pain. Haldol 5 mg IV Q4 hours scheduled for agitation Valium 10 mg IV Q2 hours scheduled for agitation (changed from Ativan due to nationwide shortage). Fentanyl transdermal patch changed to 150 mcg Q72 hours and changed today 03/17/22. Benadryl 50 mg IV Q4 hours. Continue atropine drops. Academic Records Specialist consulted and local clay modeler contacted per family request. Continue supportive care. NPO Time Spent With Patient Time with patient: 25 - 35 minutes Subjective Date/time seen: 03/18/22 15:26 Interval history: Patient is a 66 yo female with metastatic perianal melanoma currently receiving hospice care with [facility]. She presented to the hospital for management of pain and comfort care not responsive to oral narcotics. Patient sleeping. Her daughter is at bedside and reports the patient has had a few episodes of restlessness, which has improved with IV Benadryl. No other family concerns. Review of Systems Review of Systems: ROS unobtainable: Yes unobtainable due to mental status Exam Narrative: General: chronically ill-appearing, frail adult female lying in bed. No distress. Neuro/Psych: Eyes closed. Nonverbal. Does not follow commands. HEENT:? normocephalic, atraumatic, mucous membranes dry. Respiratory:?RR unlabored. No stridor, wheezing or audible rattle. Cardio: regular rate, regular rhythm. <3 cap refill. Abdomen:? nondistended, soft, nontender to palpation Extremities: No edema of bilateral lower extremities. Skin: pale, warm and dry. No visible wounds. Objective Data Vital Signs Vital Signs: Vital Signs - 24 hr 03/17/22 19:47 03/18/22 08:00 03/18/22 12:36 Respiratory Rate 14 Oxygen Delivery Room Air Room Air 03/18/22 12:38 Respiratory Rate 14 Oxygen Delivery Intake/Output Intake/Output: Intake & Output 03/15/22 03/16/22 03/17/22 03/18/22 23:59 23:59 23:59 23:59 Intake Total 200 250 Balance 200 250 Meds/Results Medications: Active Medications Generic Name Dose Route Start Last Admin Trade Name Freq PRN Reason Stop Dose Admin Artificial Tears 1 drop 03/16/22 18:30 Artificial Tears Ophth Soln 15 Ml Bottle EACH EYE Q4H PRN Dry Eye(s) Atropine Sulfate 1 drop 03/16/22 18:30 Atropine Sulfate 1% Ophth Soln 5 Ml Bottle SUBLINGUAL Q4H PRN Secretions Diazepam 20 mg 03/18/22 10:00 03/18/22 14:52 Diazepam Inj (*Crx) 10 Mg/2 Ml Syringe IV PUSH 20 mg Q2HR ESTHER Administration Diphenhydramine HCl 50 mg 03/18/22 10:28 03/18/22 14:56 Diphenhydramine Hcl Inj 50 Mg/Ml Vial IV PUSH 50 mg Q4H PRN Administration Itching Fentanyl 50 mcg 03/17/22 09:00 03/17/22 08:45 Fentanyl (*Crx) 50 Mcg Patch TRANSDERM 50 mcg Q72HR ESTHER Administration Fentanyl 100 mcg 03/17/22 09:00 03/17/22 08:45 Fentanyl (*Crx) 100 Mcg Patch TRANSDERM 100 mcg Q72HR ESTHER Administration Fentanyl Citrate 100 mcg 03/17/22 11:49 03/18/22 10:59 Fentanyl Citrate Inj (*Crx) 100 Mcg/2 Ml Vial IV PUSH 100 mcg Q1HR PRN Administration Breakthrough Pain Haloperidol Lactate 5 mg 03/17/22 13:00 03/18/22 12:35 Haloperidol Lactate 5 Mg/Ml Vial IV PUSH 5 mg Q4HR ESTHER Administration Heparin Sodium (Beef Lung) 50 units 03/17/22 09:00 03/18/22 09:05 Heparin Flush 50 Units/5 Ml Syringe IV PUSH Not Given QAM ESTHER Heparin Sodium
[2022-03-18 17:19] VITALS: BP 115/67; PULSE 106; RESP 14; TEMP 36.6; O2SAT 100
[2022-03-18 22:06] VITALS: BP 97/49; PULSE 82; RESP 16; TEMP 36.4; O2SAT 100
[2022-03-19] MEDS: diazePAM INJ (*CRX) 10 MG/2 ML SYRINGE 20 MG IV PUSH ×12 (00:04→22:23)
[2022-03-19] MEDS: HALOPERIDOL LACTATE 5 MG/ML VIAL IV PUSH ×6 (00:56→21:15)
[2022-03-19] MEDS: fentaNYL CITRATE INJ (*CRX) 100 MCG/2 ML VIAL IV PUSH ×4 (02:21→22:23)
[2022-03-19] MEDS: diphenhydrAMINE HCl INJ 50 MG/ML VIAL IV PUSH ×4 (04:26→20:11)
[2022-03-19 05:59] VITALS: RESP 16
[2022-03-19] MEDS: FENTANYL 2,500MCG/NS250ML(*CRX 2,500 MCG/250 ML BAG 15 MCG IV CONT ×2 (05:59→22:18)
[2022-03-19] MEDS: CENTRAL LINE FLUSH 10 ML IV PUSH ×3 (06:01→22:24)
--- NOTE | 2022-03-19 08:23 | PC.NURSE ---
Pt is a hospice pt. Pt is resting comfortably with family at bedside. Pt is very pale and having bouts of agonal breathing. Pt heart sounds are faint and lung sounds are diminished. Will continue to monitor pt and provide comfort care.
[2022-03-19 09:45] VITALS: BP 89/57; PULSE 85; RESP 19; TEMP 35.8; O2SAT 100
--- NOTE | 2022-03-19 10:59 | PM.IMPN ---
Progress Note: A&P Assessment and Plan (1) Admission for hospice care: Code(s): Z51.5 - Encounter for palliative care Status: Acute Assessment and Plan: Patient admitted for pain control/comfort measures Placed on dilaudid drip 10 mg/hour upon admission. No relief despite continued increases. Patient was also receiving scheduled Haldol and Valium as well as Roxanol 10 mg SL Q1 hours PRN for breakthrough pain. presently appears to have adequate pain control with fentanyl drip 150 mcg/hour. can continue to increase as needed for patient comfort. She is opioid tolerant. Fentanyl 100 mcg IV PRN Q1 hour breakthrough pain. Haldol 5 mg IV Q4 hours scheduled for agitation Valium 10 mg IV Q2 hours scheduled for agitation (changed from Ativan due to nationwide shortage). Fentanyl transdermal patch 150 mcg Q72 hours. Changed 03/17/22. Benadryl 50 mg IV Q4 hours prn. Continue atropine drops and artificial tears. Java [email or web address] Architect consulted and local medical bill processor contacted per family request. Supportive care. Subjective Date/time seen: 03/19/22 10:59 Interval history: date of service: 03/19/2022 Aarti Devine is a 66-year-old female with a history of perianal melanoma current with [facility] who is seen in follow-up for pain management and comfort care. patient is not able to provide any verbal response. Does appear to be resting comfortably. Revisited when family was at bedside. No family concerns at this time. Family States patient has been comfortable throughout the morning and has not been restless. Review of Systems Review of Systems: ROS unobtainable: Yes unobtainable due to medical condition Exam Narrative: General: Frail ill appearing 66-year-old female, lying supine in bed, occasionally will sigh/groan but appears comfortable Neuro: asleep, does not respond to verbal or physical stimuli HEENMT: normocephalic, atraumatic Respiratory: clear to auscultation anteriorly Cardio: regular rate, regular rhythm with S1-S2 Extremities: thin, cool to palpation, no discoloration or mottling Skin: thin, papery, cool to touch Objective Data Vital Signs Vital Signs: Vital Signs - 24 hr 03/18/22 12:36 03/18/22 12:38 03/18/22 17:19 Temperature 97.8 F Pulse Rate 106 H Respiratory Rate 14 14 14 Blood Pressure 115/67 Pulse Oximetry 100 Oxygen Delivery 03/18/22 20:30 03/18/22 22:06 03/19/22 05:59 Temperature 97.5 F L Pulse Rate 82 Respiratory Rate 16 16 Blood Pressure 97/49 L Pulse Oximetry 100 Oxygen Delivery Room Air 03/19/22 08:19 03/19/22 09:45 Temperature 96.4 F L Pulse Rate 85 Respiratory Rate 19 Blood Pressure 89/57 L Pulse Oximetry 100 Oxygen Delivery Room Air Intake/Output Intake/Output: Intake & Output 03/16/22 03/17/22 03/18/22 03/19/22 23:59 23:59 23:59 23:59 Intake Total 200 250 250 Balance 200 250 250 Meds/Results Medications: Active Medications Generic Name Dose Route Start Last Admin Trade Name Freq PRN Reason Stop Dose Admin Artificial Tears 1 drop 03/16/22 18:30 Artificial Tears Ophth Soln 15 Ml Bottle EACH EYE Q4H PRN Dry Eye(s) Atropine Sulfate 1 drop 03/16/22 18:30 Atropine Sulfate 1% Ophth Soln 5 Ml Bottle SUBLINGUAL Q4H PRN Secretions Diazepam 20 mg 03/18/22 10:00 03/19/22 10:11 Diazepam Inj (*Crx) 10 Mg/2 Ml Syringe IV PUSH 20 mg Q2HR ESTHER Administration Diphenhydramine HCl 50 mg 03/18/22 17:24 03/19/22 08:06 Diphenhydramine Hcl Inj 50 Mg/Ml Vial IV PUSH 50 mg Q3HR PRN Administration Itching Fentanyl 50 mcg 03/17/22 09:00 03/17/22 08:45 Fentanyl (*Crx) 50 Mcg Patch TRANSDERM 50 mcg Q72HR ESTHER Administration Fentanyl 100 mcg 03/17/22 09:00 03/17/22 08:45 Fentanyl (*Crx) 100 Mcg Patch TRANSDERM 100 mcg Q72HR ESTHER Administration Fentanyl Citrate 100 mcg 03/17/22 11:49 03/19/22 09:55 Fentanyl Citrate In
[2022-03-19 15:11] VITALS: BP 81/48; PULSE 78; RESP 16; O2SAT 100
[2022-03-19 22:18] VITALS: RESP 18
[2022-03-19 23:42] VITALS: BP 64/35; PULSE 72; RESP 18; TEMP 35.2; O2SAT 100
[2022-03-20] MEDS: diazePAM INJ (*CRX) 10 MG/2 ML SYRINGE 20 MG IV PUSH ×11 (00:01→22:12)
[2022-03-20] MEDS: diphenhydrAMINE HCl INJ 50 MG/ML VIAL IV PUSH ×4 (00:01→12:15)
[2022-03-20] MEDS: ATROPINE SULFATE 1% OPHTH SOLN 5 ML BOTTLE 1 DROP SUBLINGUAL ×3 (00:19→20:31)
[2022-03-20] MEDS: fentaNYL CITRATE INJ (*CRX) 100 MCG/2 ML VIAL IV PUSH ×7 (00:22→16:58)
[2022-03-20] MEDS: HALOPERIDOL LACTATE 5 MG/ML VIAL IV PUSH ×6 (00:53→20:30)
[2022-03-20 04:30] VITALS: RESP 16
[2022-03-20] MEDS: CENTRAL LINE FLUSH 10 ML IV PUSH ×3 (05:45→22:13)
[2022-03-20] MEDS: fentaNYL (*CRX) 50 MCG PATCH TRANSDERM (09:52)
--- NOTE | 2022-03-20 10:25 | PM.IMPN ---
Progress Note: A&P Assessment and Plan (1) Admission for hospice care: Code(s): Z51.5 - Encounter for palliative care Status: Acute Assessment and Plan: Patient admitted for pain control/comfort measures Continue fentanyl drip 200 mcg/hour. can continue to increase as needed for patient comfort. She is opioid tolerant. Fentanyl 100 mcg IV PRN Q1 hour breakthrough pain. Fentanyl transdermal patch 150 mcg Q72 hours. Changed 03/17/22. Haldol 5 mg IV Q4 hours scheduled for agitation Valium 10 mg IV Q2 hours scheduled for agitation (changed from Ativan due to nationwide shortage). Benadryl 50 mg IV Q4 hours prn. Continue atropine drops and artificial tears. Add scopalamine patch today Corporate Fitness Program Coordinator consulted and local piece worker contacted per family request. Supportive care. Subjective Date/time seen: 03/20/22 10:25 Interval history: Date of service: 03/20/2022 Aarti Devine is a 66-year-old female with a history of perianal melanoma current with [facility] who is seen in follow-up for pain management and comfort care. Patient is not able to provide any verbal response. Does appear to be resting comfortably. Spoke with RN who informs that last night after being turned to be cleaned up, had increase in pain and fentanyl drip was increased. Patient has been comfortable since then. Daughters at bedside yesterday. RN reports daughter called for update this morning. Review of Systems Review of Systems: ROS unobtainable: Yes unobtainable due to medical condition Exam Narrative: General: Frail ill appearing 66-year-old female, lying supine in bed, resting comfortably, no restlessness Neuro: asleep, does not respond to verbal or physical stimuli HEENMT: normocephalic, atraumatic Respiratory: clear to auscultation anteriorly, noisy/gurgling breathing Cardio: regular rate, regular rhythm with S1-S2 Extremities: warm to palpation, no discoloration or mottling Skin: thin, papery, no rashes/lesions Objective Data Vital Signs Vital Signs: Vital Signs - 24 hr 03/19/22 15:11 03/19/22 20:00 03/19/22 22:18 Temperature Pulse Rate 78 Respiratory Rate 16 18 Blood Pressure 81/48 L Pulse Oximetry 100 Oxygen Delivery Room Air 03/19/22 23:42 03/20/22 04:30 Temperature 95.4 F L Pulse Rate 72 Respiratory Rate 18 16 Blood Pressure 64/35 L Pulse Oximetry 100 Oxygen Delivery Intake/Output Intake/Output: Intake & Output 03/17/22 03/18/22 03/19/22 03/20/22 23:59 23:59 23:59 23:59 Intake Total 200 250 500 Balance 200 250 500 Meds/Results Medications: Active Medications Generic Name Dose Route Start Last Admin Trade Name Freq PRN Reason Stop Dose Admin Artificial Tears 1 drop 03/16/22 18:30 Artificial Tears Ophth Soln 15 Ml Bottle EACH EYE Q4H PRN Dry Eye(s) Atropine Sulfate 1 drop 03/16/22 18:30 03/20/22 06:25 Atropine Sulfate 1% Ophth Soln 5 Ml Bottle SUBLINGUAL 1 drop Q4H PRN Administration Secretions Diazepam 20 mg 03/18/22 10:00 03/20/22 09:51 Diazepam Inj (*Crx) 10 Mg/2 Ml Syringe IV PUSH 20 mg Q2HR ESTHER Administration Diphenhydramine HCl 50 mg 03/18/22 17:24 03/20/22 06:22 Diphenhydramine Hcl Inj 50 Mg/Ml Vial IV PUSH 50 mg Q3HR PRN Administration Itching Fentanyl 50 mcg 03/17/22 09:00 03/20/22 09:52 Fentanyl (*Crx) 50 Mcg Patch TRANSDERM 50 mcg Q72HR ESTHER Administration Fentanyl 100 mcg 03/17/22 09:00 03/20/22 09:52 Fentanyl (*Crx) 100 Mcg Patch TRANSDERM 100 mcg Q72HR ESTHER Administration Fentanyl Citrate 100 mcg 03/17/22 11:49 03/20/22 06:47 Fentanyl Citrate Inj (*Crx) 100 Mcg/2 Ml Vial IV PUSH 100 mcg Q1HR PRN Administration Breakthrough Pain Haloperidol Lactate 5 mg 03/17/22 13:00 03/20/22 09:51 Haloperidol Lactate 5 Mg/Ml Vial IV PUSH 5 mg Q4HR ESTHER Administration Heparin Sodium (Beef Lung) 50 units 03/17/22 09:00 0
[2022-03-20 11:09] VITALS: BP 66/46; PULSE 97; RESP 17; TEMP 35.7; O2SAT 97
--- NOTE | 2022-03-20 11:12 | PC.NURSE ---
Pt vital signs continue to decline. Pt at rest. Pt daughter at bedside. Pt medications off schedule. Pharmacy notified about medication not loaded in pyxis. Med given after it became available. Pt does have some gurgling, robanul requested from care provider. Provider verbally stated she would put orders in. Will continue to monitor pt.
[2022-03-20 12:14] VITALS: PULSE 101
[2022-03-20] MEDS: FENTANYL 2,500MCG/NS250ML(*CRX 2,500 MCG/250 ML BAG 20 MCG IV CONT (12:14)
[2022-03-20] MEDS: SCOPOLAMINE 1.5 MG PATCH TRANSDERM (14:44)
[2022-03-20 20:26] VITALS: BP 51/32; PULSE 106; RESP 10; TEMP 36.3; O2SAT 82
[2022-03-21] MEDS: HALOPERIDOL LACTATE 5 MG/ML VIAL IV PUSH (00:32)
[2022-03-21] MEDS: diazePAM INJ (*CRX) 10 MG/2 ML SYRINGE 20 MG IV PUSH ×2 (00:32→02:13)
[2022-03-21 00:44] VITALS: PULSE 108
[2022-03-21 01:02] VITALS: PULSE 108
[2022-03-21] MEDS: FENTANYL 2,500MCG/NS250ML(*CRX 2,500 MCG/250 ML BAG 20 MCG IV CONT (01:02)
[2022-03-21] MEDS: ATROPINE SULFATE 1% OPHTH SOLN 5 ML BOTTLE 1 DROP SUBLINGUAL (02:13)
--- NOTE | 2022-03-21 05:17 | PC.NURSE ---
Went in at 0425 to give pt her medication. No visible respirations. Auscultation x 5 minutes revealed no breaths being taken, no corneal response to touch, and no heartrate. Pt pronounced at 0430.
--- NOTE | 2022-03-21 07:33 | PC.NURSE ---
Called and spoke to SAULO Segura to verify that the patient's port was discontinued. RN stated she removed the access at 0430.
--- NOTE | 2022-03-21 10:34 | P.DN_ITS ---
Discharge Summary Date and Time Date of : 03/21/22 Time of : 04:30 Provider Pronounced By: Marianne Villa/ Sho Carbajal Probable Cause of Probable Cause of : metastatic perianal melanoma Summary Hospital Course: Aarti Devine is a 66-year-old female with metastatic perianal melanoma receiving hospice care with [facility].?The patient was receiving 7 mg of Dilaudid orally every 1 hour at home around the clock, as well as 100 mg Fentanyl patch, PO Haldol and PO Ativan, without relief of symptoms.? Her pain is not controlled.? She was admitted for pain management under hospice.? Patient was initially started on Diludid drip, titrated up to 11 mg/hour, F entanyl patch 150 mcg Q72 hours. Scheduled Haldol IV 5 mg Q4 hours and Valium 10 mg IV Q2 hours were added. The patient continued to have uncontrolled pain and agitation. Dilaudid drip was stopped and Fentanyl drip was initiated. It was increased to 200 mcg/hour. Benadryl 50 mg IV Q3 hours PRN was added and IV haldol and IV Valium were continued. Media Arts Professor services were consulted and a cardiac sonographer was located per family request. The patient at 0430 on 03/21/22. On-call Hospitalist was notified. Family declined autopsy. Patient was released to [facility]. Additional Data Confirmation of as documented by pronouncing clinician: Pupillary Reflex, Palpable Pulses, Response to Stimuli, Heart Tones and Breath Sounds Name of Provider Notified: Dr. Andrade Time Provider Notified: 04:35 Was code activated?: No Provider Requests Autopsy: No Family Requests Autopsy: No (Family declines.) All Source Intelligence Technician Notified: Yes Date [facility] Notified of : 03/21/22 Time [facility] Notified of : 05:09 Hospice patient?: Yes
== END 2022-03-21 04:30 | disposition expired | DRG 951 ==
PROVIDERS: Admitting Provider Internal Medicine; Visit Provider Nurse Practitioner Family
DX: Z51.5 Encounter for palliative care (principal); C79.2 Secondary malignant neoplasm of skin; E03.9 Hypothyroidism, unspecified; Z66 Do not resuscitate
CPT/HCPCS: A9270; J1170; J1200; J1630; J2060; J3010; J3360